=== PATIENT | male | born 1975 | race Native Hawaiian/Other Pacific Islander ===

== ENCOUNTER 2018-04-16 15:55 | Observation (INO) | payer OTHER ==
[~2018-04-16] VITALS: Ht 188 cm; Wt 110.4 kg
[2018-04-16 17:19] VITALS: BP 142/86; TEMP 98.2; Ht 188 cm; Wt 110.4 kg
[2018-04-16 17:25] LABS: PLATELET COUNT 187 K/uL (142-355)
[2018-04-16 17:46] LABS: POTASSIUM 5.2 mmol/L (3.6-5.2)
[2018-04-16 20:00] VITALS: BP 131/81; TEMP 98.3
[2018-04-17] VITALS (7 sets, daily range): BP systolic 113–143; BP diastolic 40–87; TEMP 97.5–98
== END 2018-04-17 13:20 | disposition home or self-care (01) ==
LOC: MED/SURG 15:55
PROVIDERS: ADMIT Student in an Organized Health Care Education/Training Program
PROC: 0D9P0ZZ Drainage of Rectum, Open Approach (ICD-10-PCS; principal; 2018-04-17)
DX: K61.1 Rectal abscess (principal)
CPT/HCPCS: 80053; 85027; 85651; 86140; 87040; 87070; 87076; 87205; 99220; G0378; G0379; J1885; J2001; J2175; J2250; J2543; J2550; J2704; J3010; J3370; J3490